=== PATIENT | female | born 1990 | race African-American/Black ===

== ENCOUNTER 2022-04-28 17:55 | Inpatient (IN) | payer BC ==
[2022-04-28] MEDS ORDERED: ELECTROLYTE-148 SOLN 1,000 ML IV SCH (18:00)
[2022-04-28] MEDS ORDERED: OXYTOCIN 20 UNITS in 0.9% NS 20 UNIT/1,000 ML INFUS.BAG IV ONE ×2 (19:01→21:58)
[2022-04-28] MEDS ORDERED: PROMETHAZINE HCL 25 MG/1 ML VIAL ONE (19:08)
[2022-04-28] MEDS ORDERED: BUTORPHANOL TARTRATE 2 MG/ML VIAL ONE (19:08)
[2022-04-28 19:27] VITALS: BMI 44.9
[2022-04-28] MEDS ORDERED: BUTORPHANOL TARTRATE 2 MG/ML VIAL IVPB ONE (19:57)
[2022-04-28] MEDS ORDERED: PROMETHAZINE HCL 25 MG/1 ML VIAL IVPUSH ONE (19:57)
[2022-04-28] MEDS ORDERED: BISACODYL 10 MG SUPP.RECT RC PRN (19:59)
[2022-04-28] MEDS ORDERED: ACETAMINOPHEN 325 MG TABLET (FP) PO PRN (19:59)
[2022-04-28] MEDS ORDERED: METHYLERGONOVINE MALEATE 0.2 MG/1 ML AMP IM PRN (19:59)
[2022-04-28] MEDS ORDERED: oxyCODONE HCL 5 MG TABLET PO PRN (19:59)
[2022-04-28] MEDS ORDERED: BENZOCAINE 20% 57 GM BOTTLE TP PRN (19:59)
[2022-04-28] MEDS ORDERED: WITCH HAZEL 50% (TUCKS) 40 PAD/JAR PAD TP PRN (19:59)
[2022-04-28] MEDS ORDERED: BENZOCAINE 28 GM HEMORRHOIDAL OINTMENT TP PRN (19:59)
[2022-04-28] MEDS ORDERED: DEXTROSE 5%-LACTATED RINGERS 1,000 ML IV SCH (20:00)
[2022-04-28] MEDS ORDERED: OXYTOCIN 20 UNITS in 0.9% NS 20 UNIT/1,000 ML INFUS.BAG IV SCH (20:00)
[2022-04-28] MEDS ORDERED: AMPICILLIN SODIUM 2 GM VIAL IVPB ONE (20:00)
[2022-04-28] MEDS ORDERED: ceFAZolin SODIUM 1 GM VIAL ONE (20:13)
[2022-04-28] MEDS ORDERED: ceFAZolin 2 GRAM PREMIX BAG IVPB ONE (20:15)
[2022-04-28] MEDS ORDERED: CEFAZOLIN SODIUM 2 GM in DEXTROSE 5%-WATER 100 ML IVPB ONE (20:30)
[2022-04-28 20:54] LABS: BASO % 0.3 % (0-2.0); EOS % 0.1 % (0-4.5); HEMATOCRIT 32.6 % (32.4-45.2); HEMOGLOBIN 10.7 GM/dL (10.7-15.3); LYMPH % 8.3 % (8-40); MCH 31.3 pg (25.7-33.7); MCHC 32.8 g/dl (32.0-36.0); MEAN CELL VOLUME 95.4 fl (80-96); MEAN PLT VOLUME 8.6 fl (7.5-11.1); MONO % 5.7 % (3.8-10.2); NEUT % 85.6 % (42.8-82.8); PLATELET COUNT 251 10^3/uL (134-434); RBC 3.42 M/mm3 (3.60-5.2); RDW 13.4 % (11.6-15.6); WHITE BLOOD COUNT 14.6 K/mm3 (4.0-10.0)
[2022-04-28 21:06] LABS: INR 1.02 (0.83-1.09); PROTHROMBIN TIME (PATIENT) 11.7 SEC (9.7-13.0)
[2022-04-28 21:15] LABS: CALCIUM 8.3 mg/dL (8.5-10.1)
[2022-04-28 21:16] LABS: BLOOD UREA NITROGEN 7.4 mg/dL (7-18)
[2022-04-28 21:19] LABS: CREATININE 0.6 mg/dL (0.55-1.3)
[2022-04-28 22:12] LABS: HIV INTERPRETATION NEGATIVE (NEGATIVE)
[2022-04-29] MEDS ORDERED: AMPICILLIN - 1 GM in SODIUM CHLORIDE 100 ML IVPB SCH
[2022-04-29] MEDS: IBUPROFEN 600 MG TABLET (FP) PO PRN ×4 (04:34→20:53)
[2022-04-29 08:59] LABS: BASO % 0.4 % (0-2.0); EOS % 0.4 % (0-4.5); HEMATOCRIT 27.2 % (32.4-45.2); HEMOGLOBIN 9.1 GM/dL (10.7-15.3); LYMPH % 15.2 % (8-40); MCH 31.9 pg (25.7-33.7); MCHC 33.5 g/dl (32.0-36.0); MEAN PLT VOLUME 8.6 fl (7.5-11.1); MONO % 11.5 % (3.8-10.2); NEUT % 72.5 % (42.8-82.8); PLATELET COUNT 233 10^3/uL (134-434); RBC 2.86 M/mm3 (3.60-5.2); RDW 13.3 % (11.6-15.6)
[2022-04-29] MEDS: PRENATAL VITAMINS W/ FOLIC ACID TABLET (FP) PO SCH (09:36)
[2022-04-29] MEDS ORDERED: SENNOSIDES/DOCUSATE COMBO (SENNA PLUS) TABLET (UD) PO PRN (22:00)
[2022-04-30] MEDS: IBUPROFEN 600 MG TABLET (FP) PO PRN (09:24)
[2022-04-30 09:51] VITALS: BP 113/66; PULSE 76; RESP 14; TEMP 98.1
[2022-04-30] MEDS: PRENATAL VITAMINS W/ FOLIC ACID TABLET (FP) PO SCH (11:23)
== END 2022-04-30 12:15 | disposition home or self-care (01) | DRG 807 ==
LOC: JLDR 17:55 → J3W 22:59
PROVIDERS: ADMIT Obstetrics & Gynecology; ATTEND Obstetrics & Gynecology
PROC: 10E0XZZ Delivery of Products of Conception, External Approach (ICD-10-PCS; principal; 2022-04-28)
PROC: 10D17Z9 Manual Extraction of Products of Conception, Retained, Via Natural or Artificial Opening (ICD-10-PCS; 2022-04-28)
DX: O62.3 Precipitate labor (principal); Z37.0 Single live birth; O73.0 Retained placenta without hemorrhage; Z3A.39 39 weeks gestation of pregnancy
CPT/HCPCS: 36415; 59409; 80048; 85025; 85610; 85730; 86780; 86850; 86900; 86901; 87389; C9803-CS; U0003; U0005